=== PATIENT | female | born 1960 | race Caucasian/White ===

== ENCOUNTER 2018-09-05 09:02 | Emergency (ER) | payer OTHER ==
[~2018-09-05] VITALS: Ht 175.3 cm; Wt 68.0 kg
[2018-09-05 09:11] VITALS: BP_SYST 149
--- NOTE | 2018-09-05 09:14 | NUR ---
Patient to ER bed 5 to gown for evaluation. Side rails up. Report given to Siva HATFIELD.
--- NOTE | 2018-09-05 09:15 | NUR ---
Pt is here for c/o generalized weakness, denied medical hx. Pt states she feels SOB intermittently with right sided headaches. Pt denied any headaches at moment, is able to ambulate with steady gait, no deficits noted. Pt denied any head injuries, no nausa, vomiting or blurred vision. VS stable, no acute distres noted, respirations even and unlabored.
--- NOTE | 2018-09-05 09:16 | NUR ---
ER Dr. Best at bedside examining patient.
[2018-09-05] MEDS ORDERED: NACL 0.9% 1,000 ML IV ONE (09:30)
[2018-09-05 09:34] LABS: BILIRUBIN,URINE NEGATIVE (NEGATIVE); CLARITY/URINE CLEAR (CLEAR); COLOR,URINE YELLOW (YELLOW); GLUCOSE,URINE NEGATIVE (NEGATIVE); KETONES,URINE 1+ (NEGATIVE); LEUKOCYTE ESTERASE ,URINE 1+ (NEGATIVE); NITRITE, URINE NEGATIVE (NEGATIVE); PH,URINE 7.5 (5.0-8.0); PROTEIN URINE NEGATIVE (NEGATIVE); UROBILINOGEN,URINE 0.2 (0.2-1.0)
[2018-09-05 09:35] LABS: BLOOD, URINE TRACE (NEGATIVE)
[2018-09-05 09:42] LABS: BACTERIA,URINE MODERATE /HPF (None Seen)
--- NOTE | 2018-09-05 09:45 | NUR ---
Pt has IV started to left FA, 20 gauge. No redness or swelling noted to site. IV fluid NS infusing per MD order. Pt tolerating well. Daughter is at bedside.
[2018-09-05 10:13] LABS: CALCIUM 9.3 mg/dL (8.4-11.0); CREATININE 0.54 mg/dL (0.55-1.30); POTASSIUM 3.5 mmol/L (3.5-5.1)
[2018-09-05 10:20] LABS: HEMATOCRIT 39.6 % (36-48); HEMOGLOBIN 13.6 g/dL (12.0-16.0); MEAN CORPUSCULAR HEMOGLOBIN 31 pg (27-31); MEAN CORPUSCULAR HGB CONC 34 % (32-36); MEAN CORPUSCULAR VOLUME 91 fL (79.0-98.0); PLATELET COUNT (AUTO) 303 K/uL (130-430); RED BLOOD CELL COUNT(AUTO) 4.35 MIL/uL (4.2-6.2); RED CELL DISTRIBUTION WIDTH 13.1 % (9.0-15.0); WHITE BLOOD COUNT (AUTO) 8.8 K/uL (4.8-10.8)
[2018-09-05 10:27] LABS: ALBUMIN 3.2 g/dL (3.4-4.8); THYROID STIMULATING HORMONE 1.59 uIu/mL (0.34-4.82); TOTAL BILIRUBIN 0.5 mg/dL (0.0-1.0)
[2018-09-05 11:13] VITALS: BP_SYST 128
--- NOTE | 2018-09-05 11:13 | NUR ---
Patient given written and verbal discharge instructions and verbalizes understanding. ER MD discussed with patient the results and treatment provided. Patient in stable condition. ID arm band removed. IV catheter removed intact and dressing applied, no active bleeding.Rx of Cipro given. Opportunity for questions provided and answered. Medication side effect fact sheet provided.
[2018-09-05 11:25] LABS: ATYPICAL LYMPHOCYTES % 6 % (0-0); BAND % (MANUAL) 2 % (0-6); BASOPHILS % (MANUAL) 0 % (0-2); EOSINOPHILS % (MANUAL) 2 % (0-7); LYMPHOCYTES % (MANUAL) 31 % (20-46); MONOCYTES % (MANUAL) 8 % (0-11)
== END 2018-09-05 11:13 | disposition home or self-care (01) ==
LOC: SED 09:02
DX: N39.0 Urinary tract infection, site not specified (principal); R53.1 Weakness; R94.5 Abnormal results of liver function studies; R03.0 Elevated blood-pressure reading, without diagnosis of hypertension
CPT/HCPCS: 36415; 80053; 81000; 84443; 85007; 85027; 87086; 96360; 99283; J7030